=== PATIENT | male | born 1980 | race Two or more races ===

== ENCOUNTER 2017-04-15 13:22 | Emergency (ER) | payer SELFPAY ==
--- NOTE | 2017-04-15 14:01 | ER Document Report ---
ED Extremity Problem, Lower - General Chief Complaint: Knee Pain Stated Complaint: RIGHT KNEE INJURY Time Seen by Provider: 04/15/17 13:42 Notes: Patient is a 36-year-old female who presents emergency department with acute on chronic right knee pain. Patient states that he has a history of right knee pain after a childhood injury of the right knee. Patient states he has never had procedures or fractures of the knee but has previous foreign body injury. Patient states that he is on and off knee pain for the past couple of years. Patient states that about a week ago on he hurt his knee while trying to get away from a business. Patient states that he stepped away funny and felt a jerk in his knee. Patient now admits to middle knee pain that hurts with certain movements. Denies any pain with walking, ambulation. States it is hurts in the morning and gets better throughout the day with walking. Patient states that he has been working compression sleeve and taking Motrin occasionally which helps with pain. States that he has not been using any ice. Has not seen his primary care provider regarding this issue. 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 TRAVEL OUTSIDE OF THE [place] IN LAST 30 DAYS: No - Related Data Allergies/Adverse Reactions: No Known Allergies Allergy (Verified 04/15/17 13:27) Past Medical History - Social History Smoking Status: Unknown if Ever Smoked Family History: Reviewed & Not Pertinent Renal/ Medical History: Denies: Hx Peritoneal Dialysis Review of Systems - Review of Systems Constitutional: No symptoms reported Musculoskeletal: See HPI Skin: No symptoms reported -: Yes All other systems reviewed and negative Physical Exam - Vital signs Vitals: Temp Pulse Resp BP Pulse Ox 98.9 F 59 L 16 133/73 H 99 04/15/17 13:27 04/15/17 13:27 04/15/17 13:27 04/15/17 13:27 04/15/17 13:27 - General General appearance: Appears well, Alert In distress: None - Cardiovascular Pulses: Normal: Popliteal, Posterior tibial, Dorsalis pedis Normal capillary refill: Yes - Extremities Knee: Normal, Nontender, Patellar tendon intact, Other - (+) Apley's test of the affected extremity. No: Abrasion, Deformity, Dislocation, Drawer's test instability, Ecchymosis, Instability, Joint effusion, Laceration, Laxity with valgus stress, Laxity with varus stress, Pain with ROM, Popliteal fossa tender, Tender joint line, Unable to bear weight Calf: Normal, Nontender Ankle: Normal, Nontender Foot: Normal, Nontender - Neurological Neuro grossly intact: Yes Cognition: Normal Orientation: AAOx4 Angella Coma Scale Eye Opening: Spontaneous [place] Coma Scale Verbal: Oriented [place] Coma Scale Motor: Obeys Commands Angella Coma Scale Total: 15 Speech: Normal Motor strength normal: LUE, RUE, LLE, RLE Additional motor exam normals: 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 No: Weakness Sensory: Normal - Skin Skin Temperature: Warm Skin Moisture: Dry Skin Color: Normal Skin Turgor: Elastic Course - Re-evaluation Re-evalutation: 04/15/17 14:44 No evidence of a septic joint, gout flare, dislocation, or fracture on exam and imaging. Vitals wnl. At this time, I do not see an indication for labs or further imaging. Will discharge with conservative measures, return precautions, and follow-up recommendations. Patient is a 36-year-old male who is hemodynamic stable, no acute distress afebrile. Extremities neurovascularly intact. Able to walk without any difficulties. No evidence of fracture, dislocation, joint effusion noted on x-ray. - Vital Signs Vital signs: Temp Pulse Resp BP Pulse Ox 98.9 F 59 L 16 133/73 H 99 04/15/17 13:27 04/15/17 13:27 04/15/17 13:27 04/15/17 13:27 04/15/17 13:27 Discharge - Discharge Clinical Impression: Knee injury Qualifiers: Encounter type: initial encounter Laterality: right Qualified Code(s): S89.91XA - Unspecified injury of right lower leg, initial encounter Condition: Good Disposition: HOME, SELF-CARE Instructions: Ice & Elevation ([facility]), Suspected Internal Knee Injury ([facility]), Use of [id number] Ibuprofen ([facility]) Additional Instructions: [facility] Address: [address] [place] [address] Referrals: ALL GOODE MD [ACTIVE STAFF] - Follow up as needed
--- NOTE | 2017-04-15 14:48 | RADIOLOGY REPORT (SQ) ---
EXAM DESCRIPTION: KNEE RIGHT 3 VIEWS COMPLETED DATE/TIME: 04/15/2017 2:40 pm REASON FOR STUDY: knee pain COMPARISON: None. NUMBER OF VIEWS: Three views. TECHNIQUE: AP, lateral, and sunrise patella radiographic images acquired of the right knee. LIMITATIONS: None. FINDINGS: MINERALIZATION: Normal. BONES: Avulsed fragment tibial tuberosity. JOINT: No effusion. SOFT TISSUES: Swelling over the tibial tuberosity. OTHER: No other significant finding. IMPRESSION: Avulsion fracture tibial tuberosity. TECHNICAL DOCUMENTATION: JOB ID: [id number] [employer]- All Rights Reserved
[2017-04-15 15:07] VITALS: BP 130/70
== END 2017-04-15 15:07 | disposition home or self-care (01) ==
LOC: ER 13:22
DX: S89.91XA Unspecified injury of right lower leg, initial encounter (principal); X58.XXXA Exposure to other specified factors, initial encounter; M25.561 Pain in right knee; G89.29 Other chronic pain; Z87.828 Personal history of other (healed) physical injury and trauma
CPT/HCPCS: 99283

== ENCOUNTER 2017-07-16 12:09 | Emergency (ER) | payer SELFPAY ==
[2017-07-16 12:17] VITALS: BP 124/94
[2017-07-16] MEDS ORDERED: OXYCODONE-ACETAMINOPHEN 5-325 MG TABLET PO ONE (12:34)
[2017-07-16 13:10] LABS: APPEARANCE,URINE CLEAR; BILIRUBIN,URINE NEGATIVE (NEGATIVE); GLUCOSE, URINE NEGATIVE (NEGATIVE); KETONES,URINE NEGATIVE (NEGATIVE); LEUKOCYTE ESTERASE,URINE NEGATIVE (NEGATIVE); NITRITE,URINE NEGATIVE (NEGATIVE); PROTEIN,URINE NEGATIVE (NEGATIVE); URINE SPECIFIC GRAVITY 1.023; UROBILINOGEN,URINE NEGATIVE mg/dL (<2.0)
--- NOTE | 2017-07-16 13:25 | RADIOLOGY REPORT (SQ) ---
EXAM DESCRIPTION: L SPINE WHOLE COMPLETED DATE/TIME: 07/16/2017 12:58 pm REASON FOR STUDY: pain COMPARISON: None. NUMBER OF VIEWS: Five views including obliques. TECHNIQUE: AP, lateral, oblique, and sacral radiographic images acquired of the lumbar spine. LIMITATIONS: None. FINDINGS: MINERALIZATION: Normal. SEGMENTATION: Normal. No transitional anatomy. ALIGNMENT: Minimal grade 1 anterolisthesis of L5 over S1, related to bilateral L5 spondylolysis VERTEBRAE: Maintained height. No fracture or worrisome bone lesion. DISCS: Moderate disc space loss of height at L4-5 and L5-S1 POSTERIOR ELEMENTS: Bilateral spondylolysis at L5. HARDWARE: None in the spine. PARASPINAL SOFT TISSUES: Normal. PELVIS: Left SI joint sclerosis OTHER: No other significant finding. IMPRESSION: Bilateral L5 spondylolysis grade 1 anterolisthesis of L5 over S1. TECHNICAL DOCUMENTATION: JOB ID: [id number] [employer]- All Rights Reserved
--- NOTE | 2017-07-16 14:26 | RADIOLOGY REPORT (SQ) ---
EXAM DESCRIPTION: CT ABD/PELVIS NO ORAL OR IV COMPLETED DATE/TIME: 07/16/2017 2:10 pm REASON FOR STUDY: hematuria/back pain COMPARISON: Lumbar spine films same date TECHNIQUE: CT scan of the abdomen and pelvis performed without intravenous or oral contrast. Images reviewed with lung, soft tissue, and bone windows. Reconstructed coronal and sagittal MPR images revi ewed. All images stored on PACS. All CT scanners at this facility use dose modulation, iterative reconstruction, and/or weight based d osing when appropriate to reduce radiation dose to as low as reasonably achievable (ALARA). [facility]: Dose Right [facility]: CareDose [facility]: Dose Right [facility]: Teradose 4D [facility]: [employer] RADIATION DOSE: CT Rad equipment meets quality standard of care and radiation dose reduction techniq ues were employed. CTDIvol: 3.6 mGy. DLP: 186 mGy-cm.mGy. LIMITATIONS: None. FINDINGS: LOWER CHEST: No significant findings. No nodules or infiltrates. NON-CONTRASTED LIVER, SPLEEN, ADRENALS: Evaluation limited by lack of IV contrast. No identified sign ificant masses. PANCREAS: No masses. No peripancreatic inflammatory changes. GALLBLADDER: No identified stones by CT criteria. No inflammatory changes to suggest cholecystitis. RIGHT KIDNEY AND URETER: No suspicious masses. Assessment limited by lack of IV contrast. No signif icant calcifications. No hydronephrosis or hydroureter. LEFT KIDNEY AND URETER: No suspicious masses. Assessment limited by lack of IV contrast. No signifi cant calcifications. No hydronephrosis or hydroureter. AORTA AND RETROPERITONEUM: No aneurysm. No retroperitoneal masses or adenopathy. BOWEL AND PERITONEAL CAVITY: No obvious masses or inflammatory changes. No free fluid. APPENDIX: Normal. PELVIS, BLADDER, AND ABDOMINAL WALL:No abnormal masses. No free fluid. Bladder normal. BONES: There is bilateral L5 spondylolysis with grade 1 anterolisthesis of L5 over S1. Small central disc protrusion at L3-4 with borderline central canal narrowing on axial image 41 and sagittal image 37 OTHER: No other significant finding. IMPRESSION: No CT findings to explain history of hematuria. Normal appendix No radiopaque urinary stones, hydronephrosis, or hydroureter Degenerative disc changes L3-4, bilateral spondylolysis at L5. COMMENT: Quality ID # [id number]: Final reports with documentation of one or more dose reduction techniques (e.g., Automated exposure control, adjustment of the mA and/or kV according to patient size, use of iterative reconstruction technique) TECHNICAL DOCUMENTATION: JOB ID: [id number] [employer]- All Rights Reserved
--- NOTE | 2017-07-16 14:53 | ER Document Report ---
ED General - General Chief Complaint: Low Back Pain Stated Complaint: BACK PAIN Time Seen by Provider: 07/16/17 12:34 Mode of Arrival: Ambulatory Information source: Patient Notes: Patient presents with left low back pain. It radiates on the left leg. It is severe and constant for the last 2 days. No known injuries or trauma. The pain is worse with movement better with rest. He is also denies any abdominal pain. No problems with urination or bowel movements. No changes of sensation or numbness in the rectal or perineal areas. Pain is sharp. TRAVEL OUTSIDE OF THE [place] IN LAST 30 DAYS: No - Related Data Allergies/Adverse Reactions: No Known Allergies Allergy (Verified 07/16/17 12:13) Past Medical History - General Information source: Patient - Social History Smoking Status: Current Every Day Smoker Chew tobacco use (# tins/day): No Frequency of alcohol use: Social Family History: Reviewed & Not Pertinent Patient has suicidal ideation: No Patient has homicidal ideation: No Renal/ Medical History: Denies: Hx Peritoneal Dialysis Review of Systems - Review of Systems Cardiovascular: denies: Chest pain, Palpitations Respiratory: denies: Cough, Short of breath Gastrointestinal: denies: Abdominal pain, Diarrhea, Vomiting -: Yes All other systems reviewed and negative Physical Exam - Vital signs Vitals: Temp Pulse Resp BP Pulse Ox 98.0 F 92 18 124/94 H 97 07/16/17 12:13 07/16/17 12:13 07/16/17 12:13 07/16/17 12:13 07/16/17 12:13 Interpretation: Hypertensive - General General appearance: Appears well, Alert - HEENT Head: Normocephalic, Atraumatic Eyes: Normal Pupils: PERRL - Respiratory Respiratory status: No respiratory distress Chest status: Nontender Breath sounds: Normal Chest palpation: Normal - Cardiovascular Rhythm: Regular Heart sounds: Normal auscultation Murmur: No - Abdominal Inspection: Normal Distension: No distension Bowel sounds: Normal Tenderness: Nontender Organomegaly: No organomegaly - Back Back: Tender - Patient has diffuse tenderness to palpation of the left lower lumbar area. There is no step-off deformities of the L-spine. - Extremities General upper extremity: Normal inspection, Nontender, Normal color, Normal ROM , Normal temperature General lower extremity: Normal inspection, Nontender, Normal color, Normal ROM , Normal temperature, Normal weight bearing. No: Raul's sign - Neurological Neuro grossly intact: Yes Cognition: Normal Orientation: AAOx4 Angella Coma Scale Eye Opening: Spontaneous [place]ella Coma Scale Verbal: Oriented [place] Coma Scale Motor: Obeys Commands Hub[place] Coma Scale Total: 15 Speech: Normal Motor strength normal: LUE, RUE, LLE, RLE Sensory: Normal - Psychological Associated symptoms: Normal affect, Normal mood - Skin Skin Temperature: Warm Skin Moisture: Dry Skin Color: Normal Course - Vital Signs Vital signs: Temp Pulse Resp BP Pulse Ox 98.0 F 92 18 124/94 H 97 07/16/17 12:13 07/16/17 12:13 07/16/17 12:13 07/16/17 12:13 07/16/17 12:13 - Laboratory Laboratory results interpreted by me: 07/16/17 12:15 Urine Blood SMALL H - Diagnostic Test Radiology reviewed: Image reviewed, Reports reviewed - X-rays were reviewed by me and showed no evidence of fracture or dislocation. CT scan shows no evidence of urinary stone. Discharge - Discharge Clinical Impression: Acute left-sided low back pain Qualifiers: Sciatica presence: with sciatica Sciatica laterality: sciatica of left side Qualified Code(s): M54.42 - Lumbago with sciatica, left side Condition: Stable Disposition: HOME, SELF-CARE Instructions: Low Back Pain ([facility]) Additional Instructions: Your blood pressure is elevated. Please have this rechecked within the next week by your doctor. Prescriptions: Oxycodone HCl/Acetaminophen [Percocet 5-325 mg Tablet] 1 - 2 tab PO Q4H PRN #15 tablet PRN Reason: Forms: Elevated Blood Pressure, Return to Work Referrals: TRACEY LANZA MD [COMMUNITY BASED STAFF] - Follow up as needed
== END 2017-07-16 15:00 | disposition home or self-care (01) ==
LOC: ER 12:09
DX: M54.42 Lumbago with sciatica, left side (principal); F17.200 Nicotine dependence, unspecified, uncomplicated
CPT/HCPCS: 72110; 74176; 81001; 99284